=== PATIENT | male | born 1950 | race Hispanic/Latino ===

== ENCOUNTER 2020-01-07 02:00 | Observation (INO) | payer OTHER ==
[~2020-01-07] VITALS: Ht 172.7 cm; Wt 86.2 kg
[2020-01-07] MEDS ORDERED: ACETAMINOPHEN EXTRA STRENGTH 500 MG TABLET ONE (02:18)
[2020-01-07 02:35] LABS: BASOPHILS % (AUTO) 0.3 % (0.0-5.0); EOSINOPHILS % (AUTO) 5.7 % (0.0-8.0); HEMATOCRIT 34.3 % (42-54); LYMPHOCYTES % (AUTO) 11.6 % (21.0-51.0); MEAN CORPUSCULAR HEMOGLOBIN 31.5 pg (27.0-33.0); MEAN CORPUSCULAR HGB CONC 34.7 g/dL (32.0-36.0); MEAN CORPUSCULAR VOLUME 90.7 fL (79-99); MONOCYTES % (AUTO) 4.1 % (3.0-13.0); NEUTROPHILS % (AUTO) 77.7 % (40.0-77.0); PLATELET COUNT (AUTO) 331 K/uL (130-400); RED BLOOD CELL COUNT(AUTO) 3.78 MIL/uL (4.50-6.20); RED CELL DISTRIBUTION WIDTH 11.9 % (11.0-15.5)
[2020-01-07 02:47] LABS: INR 0.95 (0.85-1.15); PARTIAL THROMBOPLASTIN TIME 23.6 SEC (26.3-35.5)
[2020-01-07 02:53] LABS: CREATINE KINASE, TOTAL 106 U/L (21-232); MYOGLOBIN 59 ng/mL (10-92); TROPONIN I < 0.04 ng/mL (0.00-0.06)
[2020-01-07 02:58] LABS: APPEARANCE,URINE Cloudy (CLEAR); BILIRUBIN,URINE Negative (NEGATIVE); COLOR,URINE Yellow (YELLOW); GLUCOSE, URINE (UA) Negative (NEGATIVE); KETONES,URINE Negative (NEGATIVE); LEUKOCYTE ESTERASE ,URINE Moderate (NEGATIVE); NITRATE,URINE Negative (NEGATIVE); OCCULT BLOOD,URINE Trace (NEGATIVE); PROTEIN,URINE Negative (NEGATIVE)
[2020-01-07 03:01] LABS: CREATININE 1.4 mg/dL (0.5-1.5)
[2020-01-07 03:06] LABS: ALBUMIN 4.3 g/dL (3.5-5.0); BILIRUBIN,TOTAL 0.6 mg/dL (0.2-1.0)
[2020-01-07 03:10] LABS: BACTERIA,URINE Rare /HPF (None Seen); SQUAMOUS EPITHELIAL CELL,UR Rare /HPF (0-2)
[2020-01-07] MEDS ORDERED: ZOSYN 3.375GM+NS 50ML 50 ML IV ONE (03:20)
[2020-01-07] MEDS ORDERED: SODIUM CHLORIDE 0.9% 1000ML 2,000 ML IV ONE (03:21)
[2020-01-07 05:05] VITALS: BP 97/56
[2020-01-07] MEDS: SODIUM CHLORIDE 0.9% 1000ML 1,000 ML IV SCH ×3 (06:45→23:48)
[2020-01-07] MEDS ORDERED: ONDANSETRON HCL 4 MG/2 ML VIAL IVP PRN (06:45)
[2020-01-07 08:31] VITALS: BP 150/81
[2020-01-07] MEDS: PANTOPRAZOLE SODIUM 40 MG TABLET.DR PO SCH (08:52)
[2020-01-07] MEDS: ACETAMINOPHEN 325 MG TAB PO PRN ×2 (08:52→21:49)
[2020-01-07] MEDS ORDERED: DEXTROSE 50%-WATER 50 ML DISP.SYRIN IV PRN (10:00)
[2020-01-07] MEDS ORDERED: GLUCAGON 1MG KIT 1 MG ML IM PRN (10:00)
[2020-01-07] MEDS ORDERED: HYDRALAZINE HCL 20 MG/ML VIAL IV PRN (10:15)
[2020-01-07] MEDS: CEFTRIAXONE SODIUM 1 GM IVP SCH ×2 (10:46→21:49)
[2020-01-07] MEDS ORDERED: ZOSYN 3.375GM+NS 50ML 50 ML IV SCH (11:00)
[2020-01-07] MEDS: INSULIN HUMULIN R 100 UNIT/ML 3ML SQ SCH ×3 (11:30→22:02)
[2020-01-07 11:37] VITALS: BP 125/60
[2020-01-07] MEDS ORDERED: GLIP5TAB11 PO (12:16)
[2020-01-07] MEDS ORDERED: METO25TA6 PO (12:16)
[2020-01-07] MEDS ORDERED: HYDR12.54 PO (12:16)
[2020-01-07] MEDS ORDERED: ASPI81TA40 PO (12:16)
[2020-01-07] MEDS ORDERED: METF500T20 PO (12:16)
[2020-01-07] MEDS ORDERED: FENO134C PO (12:16)
[2020-01-07] MEDS ORDERED: PRAV40TA3 PO (12:16)
[2020-01-07] MEDS ORDERED: OMEP20TA25 PO (12:16)
[2020-01-07] MEDS ORDERED: AMLO1CAP PO (12:16)
[2020-01-07] MEDS ORDERED: TAMS-1 PO (12:16)
[2020-01-07] MEDS: METRONIDAZOLE 500 MG TABLET PO SCH ×2 (13:25→17:58)
[2020-01-07] MEDS: PHENAZOPYRIDINE HCL 200 MG TABLET PO SCH ×2 (13:25→21:47)
[2020-01-07] MEDS: MEROPENEM 1 GM VIAL IVP SCH ×2 (13:25→18:45)
[2020-01-07] MEDS: CLOTRIMAZOLE 30 GM CREAM.GM. TP SCH ×2 (13:25→21:48)
[2020-01-07 16:34] VITALS: BP 149/81
--- NOTE | 2020-01-07 16:59 | NUR ---
Iniital Assessment SW met with patient. Patient lives alone. Emergency contacts are sons: Georgi [phone] and Sukumar Louise . No home services. DME: BPM, glucometer (no insulin), cane. Patient is independent and drives. PCP is Dr. Elliott. Pharmacy is [facility] in [place]. DCP is home. Addendum: 01/07/20 at 1702 by LISA BLEVINS SS Amended: Links added.
[2020-01-07 20:32] VITALS: BP 139/54
[2020-01-07] MEDS ORDERED: DIPHENHYDRAMINE HCL 25 MG CAPSULE PO SCH (21:45)
[2020-01-07] MEDS: METOPROLOL TARTRATE 25 MG TAB PO SCH (21:47)
[2020-01-07] MEDS: ATORVASTATIN CALCIUM 10 MG TABLET PO SCH (21:48)
[2020-01-08] VITALS (7 sets, daily range): BP systolic 98–118; BP diastolic 49–71
[2020-01-08] MEDS: MEROPENEM 1 GM VIAL IVP SCH ×3 (01:09→18:03)
[2020-01-08] MEDS: METRONIDAZOLE 500 MG TABLET PO SCH ×2 (01:09→10:27)
[2020-01-08] MEDS: ACETAMINOPHEN 325 MG TAB PO PRN (04:50)
[2020-01-08] MEDS: SODIUM CHLORIDE 0.9% 1000ML 1,000 ML IV SCH ×3 (05:12→23:25)
[2020-01-08] MEDS: INSULIN HUMULIN R 100 UNIT/ML 3ML SQ SCH ×4 (05:13→20:29)
[2020-01-08 05:38] LABS: HEMATOCRIT 30.9 % (42-54); MEAN CORPUSCULAR HEMOGLOBIN 31.2 pg (27.0-33.0); MEAN CORPUSCULAR VOLUME 91.7 fL (79-99); PLATELET COUNT (AUTO) 247 K/uL (130-400); RED BLOOD CELL COUNT(AUTO) 3.37 MIL/uL (4.50-6.20); RED CELL DISTRIBUTION WIDTH 12.1 % (11.0-15.5); WHITE BLOOD COUNT (AUTO) 21.6 K/uL (4.8-10.8)
[2020-01-08 06:06] LABS: CREATININE 1.3 mg/dL (0.5-1.5); POTASSIUM 3.6 mmol/L (3.5-5.1)
[2020-01-08 06:23] LABS: BAND NEUTROPHILS % (MANUAL) 8 % (0-2); BASOPHILS % (MANUAL) 1 % (0-2); LYMPHOCYTES % (MANUAL) 7 % (22-44); MAN.DIFF COMMENT-IMPRESSION MANUAL DIFFERENTIAL; MONOCYTES % (MANUAL) 5 % (2-9); REACTIVE LYMPHOCYTES 1 % (0-0); SEGMENTED NEUTROPHILS % 78 % (40-70)
[2020-01-08 06:24] LABS: PLATELET MORPHOLOGY COMMENT ADEQUATE
[2020-01-08] MEDS: PHENAZOPYRIDINE HCL 200 MG TABLET PO SCH ×3 (08:40→20:26)
[2020-01-08] MEDS: AMLODIPINE-BENAZEPRIL 5-10 MG PO SCH (08:41)
[2020-01-08] MEDS: METOPROLOL TARTRATE 25 MG TAB PO SCH ×2 (08:42→20:26)
[2020-01-08] MEDS: TAMSULOSIN HCL 0.4 MG CAP.ER.24H PO SCH (08:42)
[2020-01-08] MEDS: ASPIRIN 81 MG EC TAB PO SCH (08:42)
[2020-01-08] MEDS: HYDROCHLOROTHIAZIDE 25 MG TABLET PO SCH (08:42)
[2020-01-08] MEDS: PANTOPRAZOLE SODIUM 40 MG TABLET.DR PO SCH (08:42)
[2020-01-08] MEDS: CLOTRIMAZOLE 30 GM CREAM.GM. TP SCH ×3 (08:44→21:00)
[2020-01-08] MEDS: ENOXAPARIN SODIUM 40 MG/0.4 ML SYRINGE SQ SCH (08:45)
[2020-01-08] MEDS: FENOFIBRATE MICRONIZED 134 MG PO SCH (08:53)
[2020-01-08] MEDS: CEFTRIAXONE SODIUM 1 GM IVP SCH (10:27)
--- NOTE | 2020-01-08 14:30 | NUR ---
DR GRECO ROUNDED ON PATIENT D/C ROCEPHIN. PATIENT WILL CONTINUE ON MERREM
[2020-01-08] MEDS: ATORVASTATIN CALCIUM 10 MG TABLET PO SCH (20:26)
[2020-01-08] MEDS ORDERED: LACTULOSE 20 GM/30 ML UDCUP PO SCH (21:00)
[2020-01-09] MEDS: MEROPENEM 1 GM VIAL IVP SCH ×2 (03:20→23:00)
[2020-01-09 04:00] VITALS: BP 122/69
[2020-01-09 04:10] LABS: HEMATOCRIT 29.8 % (42-54); MEAN CORPUSCULAR HEMOGLOBIN 31.6 pg (27.0-33.0); MEAN CORPUSCULAR HGB CONC 34.6 g/dL (32.0-36.0); MEAN CORPUSCULAR VOLUME 91.4 fL (79-99); PLATELET COUNT (AUTO) 244 K/uL (130-400); RED BLOOD CELL COUNT(AUTO) 3.26 MIL/uL (4.50-6.20); WHITE BLOOD COUNT (AUTO) 19.3 K/uL (4.8-10.8)
[2020-01-09 04:19] LABS: CREATININE 1.3 mg/dL (0.5-1.5); POTASSIUM 3.8 mmol/L (3.5-5.1)
[2020-01-09 04:29] LABS: BAND NEUTROPHILS % (MANUAL) 7 % (0-2); EOSINOPHILS % (MANUAL) 4 % (1-6); LYMPHOCYTES % (MANUAL) 12 % (22-44); MAN.DIFF COMMENT-IMPRESSION MANUAL DIFFERENTIAL; REACTIVE LYMPHOCYTES 3 % (0-0); SEGMENTED NEUTROPHILS % 74 % (40-70)
[2020-01-09] MEDS: INSULIN HUMULIN R 100 UNIT/ML 3ML SQ SCH ×4 (05:49→20:27)
[2020-01-09] MEDS: SODIUM CHLORIDE 0.9% 1000ML 1,000 ML IV SCH ×3 (06:26→19:03)
[2020-01-09 07:49] VITALS: BP 120/63
[2020-01-09] MEDS ORDERED: LEVOFLOXACIN 500 MG/D5W 100 ML 100 ML IV SCH (08:15)
[2020-01-09] MEDS: FENOFIBRATE MICRONIZED 134 MG PO SCH (09:00)
[2020-01-09] MEDS: PHENAZOPYRIDINE HCL 200 MG TABLET PO SCH (09:23)
[2020-01-09] MEDS: TAMSULOSIN HCL 0.4 MG CAP.ER.24H PO SCH (09:23)
[2020-01-09] MEDS: HYDROCHLOROTHIAZIDE 25 MG TABLET PO SCH (09:27)
[2020-01-09] MEDS: METOPROLOL TARTRATE 25 MG TAB PO SCH ×2 (09:28→20:26)
[2020-01-09] MEDS: ASPIRIN 81 MG EC TAB PO SCH (09:28)
[2020-01-09] MEDS: PANTOPRAZOLE SODIUM 40 MG TABLET.DR PO SCH (09:28)
[2020-01-09] MEDS: ENOXAPARIN SODIUM 40 MG/0.4 ML SYRINGE SQ SCH (09:29)
[2020-01-09] MEDS: AMLODIPINE-BENAZEPRIL 5-10 MG PO SCH (09:30)
[2020-01-09] MEDS: CLOTRIMAZOLE 30 GM CREAM.GM. TP SCH ×3 (09:33→20:40)
[2020-01-09 10:56] VITALS: BP 146/67
[2020-01-09] MEDS ORDERED: MEROPENEM 1 GM VIAL IVP SCH (15:00)
[2020-01-09 15:49] VITALS: BP 128/74
[2020-01-09 19:31] VITALS: BP 131/65
[2020-01-09] MEDS: ATORVASTATIN CALCIUM 10 MG TABLET PO SCH (20:26)
[2020-01-09 23:44] VITALS: BP 132/69
[2020-01-10 03:51] LABS: BASOPHILS % (AUTO) 0.5 % (0.0-5.0); EOSINOPHILS % (AUTO) 8.4 % (0.0-8.0); HEMATOCRIT 27.3 % (42-54); LYMPHOCYTES % (AUTO) 16.4 % (21.0-51.0); MEAN CORPUSCULAR HEMOGLOBIN 30.7 pg (27.0-33.0); MEAN CORPUSCULAR HGB CONC 34.4 g/dL (32.0-36.0); MEAN CORPUSCULAR VOLUME 89.2 fL (79-99); MONOCYTES % (AUTO) 4.8 % (3.0-13.0); NEUTROPHILS % (AUTO) 69.2 % (40.0-77.0); PLATELET COUNT (AUTO) 270 K/uL (130-400); RED BLOOD CELL COUNT(AUTO) 3.06 MIL/uL (4.50-6.20); RED CELL DISTRIBUTION WIDTH 11.9 % (11.0-15.5); WHITE BLOOD COUNT (AUTO) 10.2 K/uL (4.8-10.8)
[2020-01-10 03:54] VITALS: BP 134/70
[2020-01-10 04:06] LABS: POTASSIUM 3.8 mmol/L (3.5-5.1)
[2020-01-10] MEDS: INSULIN HUMULIN R 100 UNIT/ML 3ML SQ SCH ×2 (04:44→11:56)
[2020-01-10] MEDS: MEROPENEM 1 GM VIAL IVP SCH (05:25)
[2020-01-10] MEDS: SODIUM CHLORIDE 0.9% 1000ML 1,000 ML IV SCH (05:25)
[2020-01-10] MEDS ORDERED: LEVO500T2 PO (07:45)
[2020-01-10 08:00] VITALS: BP 115/67
[2020-01-10] MEDS: ENOXAPARIN SODIUM 40 MG/0.4 ML SYRINGE SQ SCH (09:00)
[2020-01-10] MEDS: FENOFIBRATE MICRONIZED 134 MG PO SCH (09:00)
[2020-01-10] MEDS: TAMSULOSIN HCL 0.4 MG CAP.ER.24H PO SCH (09:31)
[2020-01-10] MEDS: METOPROLOL TARTRATE 25 MG TAB PO SCH (09:32)
[2020-01-10] MEDS: CLOTRIMAZOLE 30 GM CREAM.GM. TP SCH (09:32)
[2020-01-10] MEDS: HYDROCHLOROTHIAZIDE 25 MG TABLET PO SCH (09:32)
[2020-01-10] MEDS: ASPIRIN 81 MG EC TAB PO SCH (09:32)
[2020-01-10] MEDS: PANTOPRAZOLE SODIUM 40 MG TABLET.DR PO SCH (09:32)
[2020-01-10] MEDS: AMLODIPINE-BENAZEPRIL 5-10 MG PO SCH (09:32)
[2020-01-10 11:54] VITALS: BP 162/81
--- NOTE | 2020-01-10 14:15 | NUR ---
DISCHARGE PATIENT GIVEN DISCHARGE INSTRUCTIONS VIA TACH BACK. PATIENT TO FOLLOW UP WITH DR. DALY ON MONDAY. [facility] [place]. PER PATIENT, WOULD PREFER [facility] IN [place]. PATIENT STATED WILL FOLLOW UP WITH [facility] FOR LEVOFLOXACIN 500MG 1 TAB PO QD X 7 DAYS. PATIENT STABLE AT THIS TIME. 20G PIV TO LFA DISCONTINUED, TIP INTACT. PATIENT ESCORTED TO LOBBY BY CINDA SUAZO.
== END 2020-01-10 14:15 | disposition home or self-care (01) ==
LOC: EDH 02:00 → EDHIP 04:27 → 4BH 06:14
PROVIDERS: ADMIT Internal Medicine Critical Care Medicine; ATTEND Internal Medicine Critical Care Medicine
DX: A41.50 Gram-negative sepsis, unspecified (principal); N39.0 Urinary tract infection, site not specified; I10 Essential (primary) hypertension; E11.9 Type 2 diabetes mellitus without complications; E78.5 Hyperlipidemia, unspecified; B37.9 Candidiasis, unspecified; E66.9 Obesity, unspecified; R19.7 Diarrhea, unspecified; D72.829 Elevated white blood cell count, unspecified; B35.9 Dermatophytosis, unspecified; D64.9 Anemia, unspecified; Z79.82 Long term (current) use of aspirin; Z79.899 Other long term (current) drug therapy; Z68.28 Body mass index [BMI] 28.0-28.9, adult
CPT/HCPCS: 36415 ×4; 71045; 74176; 80048 ×3; 80053; 81001; 82550; 82948 ×10; 83605; 83874; 84145; 84484; 85025 ×4; 85610; 85730; 87040; 87077; 87088; 87186; 87804 ×2; 93005; 96361 ×4; 96365; 96372 ×4; 96375; 96376 ×4; 99285; G0378 ×81; J0696 ×3; J1650 ×2; J1815 ×6; J1956; J2185 ×6; J2543; J7030; Q0163

== ENCOUNTER → 2020-03-13 | Outpatient (CLI) | payer OTHER ==
[~2020-03-13] MED LIST: AMLO1CAP PO; ASPI81TA40 PO; FENO134C PO; GLIP5TAB11 PO; HYDR12.54 PO; LEVO500T2 PO; METF500T20 PO; METO25TA6 PO; OMEP20TA25 PO; PRAV40TA3 PO; TAMS-1 PO
== END | disposition home or self-care (01) ==
LOC: RAH 09:15
PROVIDERS: ATTEND Internal Medicine Gastroenterology
DX: K80.20 Calculus of gallbladder without cholecystitis without obstruction (principal)
CPT/HCPCS: 76700